=== PATIENT | female | born 1990 | race Caucasian/White ===

== ENCOUNTER 2016-12-09 17:43 | Emergency (ER) | payer OTHER ==
[~2016-12-09] VITALS: Ht 162.6 cm; Wt 59.0 kg
[2016-12-09 17:46] VITALS: BP 146/91
[2016-12-09] MEDS ORDERED: TRIA15OI TP (18:01)
--- NOTE | 2016-12-09 18:02 | PHYS DOC ---
Past Medical History Past Medical History: No Pertinent History Past Surgical History: No Surgical History Alcohol Use: Occasionally Drug Use: Other Social History Narrative: DOES NOT WANT TO STATE Adult General Chief Complaint Chief Complaint: LOWER EXTREMITY SWELLING HPI HPI Patient is a 26 year old female with history of asthma who presents today complaining of bilateral ankle swelling, with possible bites and redness that she noted 3 days ago. Patient denies any chance she is . Denies any fever. Review of Systems Review of Systems Constitutional: Denies fever or chills [] Eyes: Denies change in visual acuity, redness, or eye pain [] Musculoskeletal: Denies back pain or joint pain [] Integument: bilateral ankle swelling, with possible bites and redness Neurologic: Denies headache, focal weakness or sensory changes [] Endocrine: Denies polyuria or polydipsia [] Physical Exam Physical Exam Constitutional: Well developed, well nourished, no acute distress, non-toxic appearance. [] HENT: Normocephalic, atraumatic, bilateral external ears normal, oropharynx moist, no oral exudates, nose normal. [] Skin: Bilateral ankles with no obvious swelling, small amount of macular rash noted on the left ankle and anterior foot, similar rash noted on the right wrist. Rash suspicious of insect bites. Back: No tenderness, no CVA tenderness. [] Extremities: No tenderness, no cyanosis, no clubbing, ROM intact, no edema. [] Neurologic: Alert and oriented X 3, normal motor function, normal sensory function, no focal deficits noted. [] Psychologic: Affect normal, judgement normal, mood normal. [] Current Patient Data Vital Signs Vital Signs Date Time Temp Pulse Resp B/P (MAP) Pulse Ox O2 Delivery O2 Flow Rate FiO2 12/09/16 17:46 98.5 99 16 100 Room Air 98.5 EKG EKG [] Radiology/Procedures Radiology/Procedures [] Course & Med Decision Making Course & Med Decision Making Pertinent Labs and Imaging studies reviewed. (See chart for details) Patient is in the ED with complaints of left and right ankle swelling. No swelling noted on physical exam. She does have a couple red areas suspicious of insect bites. Discharged with triamcinolone cream and Benadryl. Follow-up with her own PCP a database management specialist provided in 1-2 weeks. Dragon Disclaimer Dragon Disclaimer This electronic medical record was generated, in whole or in part, using a voice recognition dictation system. Departure Departure Impression: Primary Impression: Insect bite Disposition: 01 HOME, SELF-CARE Condition: STABLE Referrals: JAXON PERKINS MD follow up in 1-2 weeks Patient Instructions: Insect Bite, [id number] Additional Instructions: You were seen with concern over ankle swelling you have areas on your skin suspicious of insect bites. Use the provided cream as ordered. Elevate your bilateral lower extremities, this will prevent some of the swelling. Wear LISA hose they are sold at any drug store they will help with swelling. Take Benadryl. Follow-up with the provided doctor or your own doctor in 1-2 weeks. Scripts Triamcinolone Acetonide (TRIAMCINOLONE ACETONIDE 0.1% OINT) 15 Gm Oint...g. 1 GARY TP BID for WOUND CARE, #1 TUBE Prov: DARWIN ROY APRN 12/09/16 Problem Qualifiers Primary Impression: Insect bite Encounter type: initial encounter Qualified Codes: W57.XXXA - Bitten or stung by nonvenomous insect and other nonvenomous arthropods, initial encounter DARWIN ROY APRN Dec 09, 2016 18:02
== END 2016-12-09 18:07 | disposition home or self-care (01) ==
LOC: ER 17:43
DX: S90.562A Insect bite (nonvenomous), left ankle, initial encounter (principal); S90.561A Insect bite (nonvenomous), right ankle, initial encounter; J45.909 Unspecified asthma, uncomplicated; W57.XXXA Bitten or stung by nonvenomous insect and other nonvenomous arthropods, initial encounter; Y93.89 Activity, other specified; Y99.8 Other external cause status; Y92.89 Other specified places as the place of occurrence of the external cause
CPT/HCPCS: 99283